=== PATIENT | female | born 1930 | race Caucasian/White ===

== ENCOUNTER 2016-12-10 11:36 | Day surgery (SDC) | payer MEDICARE ==
--- NOTE | 2016-12-02 16:53 | PCM.SURGOP ---
Surgical Operative Report Date of Service: Nov 27, 2016 Pre Operative Diagnosis urinary retention urethrocele Post Operative Diagnosis urinary retention POPQ stage 2 urethrocele Procedure: Revision of TVT-0 sling Urethrocele repair Surgeon and Anger Control Counselor: Surgeon: Israel Ludwig MD Assistants: None Indication for Procedure This is an addendum to the operative report detailing the revision/excision of urinary sling. Findings: POPQ stage 2 urethrocele Procedure Details please refer the the dictation detailing the revision of urethral sling. Urethrocele repair: In a single layer using 2-0 vicryl suture in an interrupted fashion, the urethrocele was plicated in the midline, taking care not to obstruct or abnormally angulating the urethra. Complications There were no periprocedural complications identified. Surgical Specimen Removed: No Specimen sent to Pathology: No Anesthetic Plan: GA Grafts, Implants: None Output, Estimated Blood Loss: 5 (ml) Blood Administration during mckenzie: No Drains: None Catheters: Urethral 2 Way [facility] Operative Plan same day discharge copies to: Israel Ludwig MD, William Andre Z MD Dec 02, 2016 16:53
[~2016-12-10] VITALS: Ht 152.4 cm; Wt 51.5 kg
[~2016-12-10 11:36] MED LIST: CeFAZolin 2 Gm/50 mL D5W IV Premix IV ONE; FLAX100038 PO; FLUO20TA28 PO; LOVA40TA PO; MULT-1073 PO; NITR100 PO; OMEP40CA36 PO; TRAM50TA2 PO
[2016-12-10 11:58] VITALS: BP 120/67; PULSE 81; RESP 18; O2SAT 99
[2016-12-10] MEDS: Lactated Ringer's 1,000 ML IV SCH ×2 (12:19→13:30)
--- NOTE | 2016-12-10 13:33 | PCM.HPANE ---
Patient Data Date of Service: Dec 10, 2016 Surgeon Admitting Provider: Attending Provider:Israel Ludwig MD Primary Care Physician:Danilo Other Provider:Otis Damon Anesthesia Reason for Visit Urinary Retention Ht/WT & BMI Height (Feet): 5 Height (Inches): 0.00 Weight (Kilograms): 51.500 Body Mass Index 22.00 Allergies Coded Allergies: erythromycin base (Verified Allergy, Unknown, 12/08/16) penicillin (Unverified Allergy, Unknown, UNKNOWN, 07/31/15) Past Anesthesia History Anesthesia History: Positive for:: Difficult Intubation, Denies:: Abnormal Airway, Anesthesia Reactions, Fam Anesthesia Reaction, Malignant Hyperthermia Diabetes History Hx Diabetes?: No MRSA MRSA: No Medications Hypertension Medication: No Home Meds Incl Beta Dilshad: No Reported Medications Flaxseed Oil ([place]-3 Flaxseed Oil)1,000 Mg Capsule1,000 Mg PO DAILY 11/25/16 Tramadol 50 Mg [id number] Mg PO Q6H PRN For Pain Ref 0 11/18/16 Nitrofurantoin Monohyd/M-Cryst (MacroBid)100 Mg Tkitrhi401 Mg PO HS Ref 0 11/18/16 Fluoxetine 20 Mg Mbkglr66 Mg PO DAILY Ref 0 03/21/16 Multivits-Min/FA/Lycopene/Lut (Centrum Silver Tablet)1 Each Tablet1 Each PO DAILY 03/21/16 Omeprazole 40 Mg Capsule.dr40 Mg PO DAILY Ref 0 03/21/16 Lovastatin 40 Mg Odgggq63 Mg PO HS #30 TABLET Ref 0 03/21/16 History History of ENT Problems?: Yes HEENT History: Positive for:: Cataracts (bilateral) Difficult Intubation Hearing Problem Denies:: Abnormal Airway Hx of Heart Problems?: Yes Cardiovascular History: Denies:: Heart Murmur Hypertension (hld) Valvular Heart Disease (echo 06/2015 for fainting episode) Hx of Respiratory Problem?: No Respiratory History: Denies:: Asthma COPD Emphysema Oxygen Administration Pneumonia Tuberculosis Use of C-PAP Machine Hx Neurologic Problems?: Yes Neurological History: Positive for:: Headaches Denies:: Dementia (c/o some memory loss) Multiple Sclerosis Parkinson's Disease Seizures Hx of GI Problems?: Yes Gastrointestinal History: Positive for:: Gastroesphageal Reflux Denies:: Gastrointestinal Bleeding Heartburn Hx of Problems?: Yes Genitourinary History: Denies:: Urinary Tract Infection (past hx of) Other Pertinent History: stage 2 interstim current admission plan Female Hx: Denies:: Currently (hysterectomy) Problems with Breasts? Skin History: Denies:: History Skin Disorders? Pressure Ulcers Hx Musculoskeletal Problems?: Yes Musculoskeletal History: Denies:: Joint Replacement Musculoskeletal Trauma Hx of Psycho/Social Problems?: Yes Psycho Social History: Positive for:: Hx Depression Hx Surgeries?: Yes (margarette, hernia, meka, hyst, cataracts, bladder sling, interstim I) Hx Any Other Health Problems?: Yes Other History: Denies:: Cancer Endocrine Disease Hospitalization Thyroid Disease History Blood Transfusions: Denies:: Blood Transfusions Hx Diabetes: No Hx Alcohol Use: NoHx Substance Use: No Smoking Status: Never Smoker Have You Smoked inLast 12 mo: No Stop/Bang B- Body Mass Index > 35 kg/m2: No A- Age over 50: Yes N- Neck Large Circumference: No G- Gender Male: No VENECIA Risk Assessment: Low Risk, <3 Yes Risk Assessment Category Category 1A: Patient has history of documented sleep apnea, and HAS NOT received any narcotic, sedative or anesthesia administration during this stay. Category 1B: Patient has history of documented sleep apnea, and HAS received any narcotic , sedative or anesthesia administration during this stay Category 2: Patient has SUSPECTED Obstructive Sleep Apnea, and HAS received any narcotic , sedative or anesthesia administration during this stay. Category 3: Patient has SUSPECTED Obstructive Sleep Apnea and HAS NOT received narcotic, sedative or anesthesia administration during this stay. Category 4: Outpatient in Procedural Areas with known sleep apnea or who screen positive for High Risk via the STOP/BANG questionnaire. Exam Exam Vital Signs Vital Signs Date Time Temp Pulse Resp B/P Pulse Ox O2 Delivery O2 Flow Rate FiO2 12/10/16 11:58 36.2 81 18 120/67 99 Room Air General Appearance: Alert, Oriented X3, Cooperative, No Acute Distress HEENT/AIRWAY: MP 2, Neck Movement (normal), Mouth Opening (normal), Other ( full dentures) Lungs: Clear to Auscultation, Normal Air Movement Heart: Exam Unremarkable, Regular Rate/Rhythm, No Murmurs/Rubs/Gallops Meds/Labs/Diagnostics Admission Meds Current Medications Lactated Ringer's (Lr) 1,000 ml @ 120 mls/hr Q8H20M IV Last administered on t 12:19; Start 12/10/16 at 05:00; Stop 12/10/16 at 13:19; Status DC Plan Impression Patient chart reviewed, patient interviewed and anesthestic plan with risks, benefits, and alternatives discussed, and informed consent obtained. NPO Status: 12/09 ASA Physical Status: ASA2 Mod Systemic Disease Anesthetic Plan: MAC Bene/Risks/Altern/Consents: Yes HP Complete Prior to Induction: Yes Mike Henson MD Dec 10, 2016 13:33
[2016-12-10] MEDS ORDERED: Phenylephrine 10,000 mCg/mL Inj IVPUSH PRN (13:45)
[2016-12-10] MEDS ORDERED: Ondansetron 2 mg/mL 2 mL Inj IVPUSH PRN ×2 (13:45→14:30)
[2016-12-10] MEDS ORDERED: Lactated Ringer's 500 ML IV PRN (13:45)
[2016-12-10] MEDS ORDERED: hydrALAZINE 20 mg/mL Inj IVPUSH PRN (13:45)
[2016-12-10] MEDS ORDERED: EPHEDrine Sulfate 50 mg/mL Inj IVPUSH PRN (13:45)
[2016-12-10] MEDS ORDERED: Lactated Ringer's 1,000 ML IV SCH (13:45)
[2016-12-10] MEDS ORDERED: MetoCLOpramide 5 mg/mL 2 mL Inj IVPUSH PRN ×2 (13:45→14:30)
[2016-12-10] MEDS ORDERED: Labetalol 5 mg/mL 4 mL Inj IV PRN (13:45)
[2016-12-10] MEDS ORDERED: fentaNYL-PF 50 mCg/mL 2 mL Inj IVPUSH PRN (13:45)
[2016-12-10] MEDS ORDERED: Atropine 0.4 mg/mL Inj IVPUSH PRN (13:45)
[2016-12-10] MEDS ORDERED: Dexamethasone 4 mg/mL Inj IVPUSH PRN (13:45)
[2016-12-10] MEDS ORDERED: HYDROmorphone 1 mg/mL Inj IVPUSH PRN (13:45)
[2016-12-10] MEDS ORDERED: Bupivacaine-MPF 0.5% W/EPI 30 mL Inj INFILTRATE ONE (14:04)
--- NOTE | 2016-12-10 14:26 | PCM.ANEP1 ---
Post Anesthesia Phase 1 PACU Phase 1 Assessment Date of Service: Dec 10, 2016 Vital Signs 36.9 119/55 81 16 100% RA Anesthetic Administered: MAC Level of Alertness: Awake, talking HERNANDEZ's with Equal Strength: Yes Pain: No Nausea or Vomiting: No Oxygen Delivery: Room Air Lungs: Clear to Auscultation, Normal Air Movement Summary Minimal recall, no discomfort. Mike Henson MD Dec 10, 2016 14:26
--- NOTE | 2016-12-10 14:27 | PCM.ANEP2 ---
Post Anesthesia Evaluation ASA/CMS Post Anesthesia Date of Service: Dec 10, 2016 VS in Patient's Normal Range?: Yes Resp Stable; Airway Patent?: Yes CV Function & Hydration Stable: Yes Mental Status Recovered?: Yes Pain control Satisfactory?: Yes N/V Control Satisfactory?: Yes Mike Henson MD Dec 10, 2016 14:27
[2016-12-10 14:30] VITALS: BP 119/55; PULSE 84; RESP 16; O2SAT 98
[2016-12-10] MEDS ORDERED: diphenhydrAMINE 25 mg Capsule PO PRN (14:30)
[2016-12-10] MEDS ORDERED: HYDROcodone-APAP 5-325 mg Tablet PO PRN (14:30)
--- NOTE | 2016-12-10 14:31 | PCM.DIGYN ---
Surgical Discharge Instruction Dates of Hospitalization Date of Hospital Admission outpatient surgery on 12/10/16 Providers Admitting Physician: Primary Care Physician: Nopcp Attending Physician: Israel Ludwig MD Diagnosis at Time of Discharge Diagnosis at time of discharge urinary retention, detrusor atony Post-operative diagnosis urinary retention, detrusor atony Problems: Diet Discharge Diet: No restrictions Activity Discharge Activity-General: No restrictions Dressing and Incisional Care Dressing Care: Allow Steri Stripes to fall off Hygiene: May shower Follow Up Plan Follow-up appointment: Weeks (2-3) Call your provider for: Fever, Chills, Shortness of breath, Vomitting, Drainage at incision, Wound redness, Increasing pain Israel Ludwig MD Dec 10, 2016 14:31
[2016-12-10 14:53] VITALS: BP 134/69; PULSE 83; RESP 16; O2SAT 100
--- NOTE | 2016-12-10 21:19 | PCM.SURGOP ---
Surgical Operative Report Date of Service: Dec 10, 2016 Pre Operative Diagnosis urinary retention, detrusor atony Failed Stage 1 Interstim Post Operative Diagnosis urinary retention, detrusor atony Procedure: Explantation/removal of Interstim lead wire (CPT code 90127) Surgeon and Theater Projectionist: Surgeon: Israel Ludwig MD Assistants: None Indication for Procedure On 04/09/16, Blessing underwent a TVT-obturator sling and cystoscopy. Her PVR's normalized after surgery for pelvic prolapse. 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 Urodynamic stress incontinence at maximum capacity with valsalva. Two weeks ago she underwent further revision of the urethral sling (removal of 4cm total of sling at mid portion), and minor urethrocele repair. 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 She has been performing intermittent catheterization. In review of the voiding diary, her residuals have been elevated (300-500 ml). Interstim I has not provided a >50% improvement. She was consented for an explantation/removal of interstim lead wire. Risks of procedure: Explanting an InterStim lead has risks similar to any surgical procedure, including swelling, bruising, bleeding, and infection. Pain at the implant site or new pain Infection or skin irritation Very rare risk of organ (bowel, nerve) injury. Findings: see dictation Procedure Details The patient was properly identified and placed in prone position per OR protocol. Conscious sedation (MAC) was administered. The patient was prepped and draped in the usual sterile fashion. Examination of the Interstim I site revealed no significant erythema along the subcutaneous pocket and the tunneled path that crossed the midline to the contralateral side. Local injection of 0.5% lidocaine with 1/[id number] epinephrine was administered. The previous right-sided buttock pocket incision was opened using blunt dissection and the lead/Percutaneous Extension connection was identified and elevated. The Percutaneous Extension was cut and removed from the field, ensuring sterility. The pocket was irrigated with saline. No infection was noted. By making a small 0.5 cm skin incision over the lead site, the neurostimulator lead was gently pulled and removed from the S3 foramen. The wounds were closed with 2-0 vicryl subcutaneous and Dermabond. The counts were correct. Telfa, gauze 4x4s and Tegaderm was placed over incision. The estimated blood loss was minimal. The patient was transferred to the recovery area in satisfactory condition. Complications There were no periprocedural complications identified. Surgical Specimen Removed: No Specimen sent to Pathology: No Anesthetic Plan: MAC Grafts, Implants: None Output, Estimated Blood Loss: 5 (ml) Blood Administration during mckenzie: No Drains: None Catheters: Urethral 2 Way [facility] Operative Plan same day discharge copies to: Israel Ludwig MD, William Andre Z MD Dec 10, 2016 21:19
== END 2016-12-10 23:59 | disposition home or self-care (01) ==
LOC: SAS 11:36
PROVIDERS: ATTEND Obstetrics & Gynecology
DX: R33.9 Retention of urine, unspecified (principal); N31.2 Flaccid neuropathic bladder, not elsewhere classified; D64.9 Anemia, unspecified; F32.9 Major depressive disorder, single episode, unspecified; K21.9 Gastro-esophageal reflux disease without esophagitis; K58.9 Irritable bowel syndrome, unspecified; G43.909 Migraine, unspecified, not intractable, without status migrainosus; M81.0 Age-related osteoporosis without current pathological fracture; M19.90 Unspecified osteoarthritis, unspecified site; M35.00 Sjogren syndrome, unspecified
CPT/HCPCS: 64585; J0690; J7120